=== PATIENT | male | born 1985 | race Caucasian/White ===

== ENCOUNTER 2017-02-12 18:33 | Inpatient (IN) | payer OTHER ==
[~2017-02-12] VITALS: Ht 182.9 cm; Wt 110.7 kg
--- NOTE | ~2017-02-12 | HP ---
Unit #: [id number] #: [id number] Patient: MARTHA PERDUE [id number] [place] [address] [id number] MR#: [id number] NAME: AMRTHA PERDUE. ROOM: P214 Age: 31 Sex: M Admission Date: 02/12/2017 : 1985 Attending Physician: Polo Montanez M.D. Admitting Physician: Polo Montanez M.D. Primary Care Physician: Aarti Alonso A.P.R.N. HISTORY AND PHYSICAL HISTORY OF PRESENT ILLNESS The patient is a 31-year-old male admitted to [address] [place] [address] on 02/12/2017 for polysubstance abuse and suicidal ideations. PAST MEDICAL HISTORY Polysubstance abuse. PAST SURGICAL HISTORY The patient denies. SOCIAL HISTORY He is unemployed. He lives with his mother. He smokes 1 pack of cigarettes daily and uses heroin everyday and has a history of polysubstance use. FAMILY MEDICAL HISTORY Noncontributory. ALLERGIES No known drug allergies. CURRENT MEDICATIONS The patient is not on any home medications. REVIEW OF SYSTEMS CONSTITUTIONAL: No fever or chills. HEENT: Denies any sore throat, ear pain or runny nose. CARDIOVASCULAR: Denies chest pain, irregular heart rhythm or palpitations. CHEST: Denies shortness of breath or cough. No hemoptysis. GASTROINTESTINAL: Denies nausea, vomiting, diarrhea or chronic constipation. ENDOCRINE: Denies history of increased thirst or urination. No recent significant weight loss or gain. GENITOURINARY: Denies dysuria, frequency, or hematuria. SKIN: Denies any rashes. HEMATOLOGIC: Denies history of increased bleeding or bruising. MUSCULOSKELETAL: Denies any hot, swollen joints. No generalized muscle pain. NEUROLOGIC: Denies problems with vision or speech. No frequent, severe headaches. No numbness, tingling or weakness in any extremities. Denies loss of bladder or bowel control. PHYSICAL EXAMINATION Unit #: [id number] #: [id number] Patient: MARTHA PERDUE GENERAL: He is awake, alert, and oriented in no acute distress. VITAL SIGNS: Temperature 97.8, heart rate 93, respirations 16, blood pressure 123/78. HEIGHT: 6 feet 0. WEIGHT: 244 pounds. SKIN: Warm and dry without rash or lesion. HEENT: Normocephalic. TMs not viewed. Oral and nasal passages clear. Conjunctivae clear. PERRLA. EOMs intact. NECK: Supple without lymphadenopathy or thyromegaly. HEART: Regular rate and rhythm without murmur. LUNGS: Clear. ABDOMEN: Soft, nontender. : Not done. EXTREMITIES: No evidence of cyanosis, clubbing or edema. Moves all without focal deficit. NEUROLOGICAL: Grossly within normal limits. Cranial Nerves: II: Visual blanton are intact. III, IV AND : Extraocular movements are intact. Pupils are equal, round and reactive to light. V: Facial sensation is grossly normal. VII: Facial movements and expression are normal. VIII: Auditory acuity grossly intact. IX, X: Uvula is midline. Phonation is normal. XI: Patient shrugs shoulders and turns head normally. XII: Tongue protrudes in the midline. Sensory and Motor Function: Sensory and motor sensation is grossly normal. Motor: moves all extremities well. IMPRESSION 1. Psychiatric admission. 2. Polysubstance abuse. RECOMMENDATIONS PSYCHIATRIC: Per psychiatrist. MEDICAL: No contraindication to participate in this facility activities. MEDICAL PROGNOSIS Good. MEDICAL CONDITION Stable. Dictated by... David Garber/donovan TD: 02/13/2017 16:19 JOB #: [id number] Unit #: [id number] #: [id number] Patient: MARTHA PERDUE Chante HISTORY AND PHYSICAL Page 1 of 1 X GER KOO APRN HISTORY AND PHYSICAL
--- NOTE | ~2017-02-12 | PA ---
Unit #: [id number] #: [id number] Patient: MARTHA PERDUE [id number] [facility] [address] [place] [address] [id number] MR#: [id number] NAME: MARTHA PERDUE. ROOM: P214 Age: 31 Sex: M Admission Date: 02/12/2017 : 1985 Date of Assessment: Attending Physician: Polo Montanez M.D. Admitting Physician: Polo Montanez M.D. Primary Care Physician: Aarti Alonso A.P.R.N. PSYCHIATRIC ASSESSMENT INFORMANTS Patient, reliable; OLOP, reliable. CHIEF COMPLAINT "I am at rock bottom." HISTORY OF PRESENT ILLNESS Martha Perdue is a 31-year-old man with a history of substance abuse and depression. He reports that he is increasingly hopeless and helpless, and cannot stop using drugs. He felt suicidal with a plan to overdose and could not contract for safety. He was admitted for stabilization. PAST PSYCHIATRIC HISTORY Last admission to this facility was in 08/2016. He has had previous stays for his condition as well. FAMILY PSYCHIATRIC HISTORY No reported family history of mental illness or substance abuse. SOCIAL HISTORY The patient denied a history of childhood abuse or neglect. He is a single heterosexual man, who is currently living with his family and is a high-school graduate, who is temporarily unemployed. PAST MEDICAL HISTORY No chronic medical problems. MEDICATIONS None currently. ALLERGIES No known medication allergies. SUBSTANCE ABUSE HISTORY The patient has been using heroin and benzodiazepines to excess. He also uses cannabis and cocaine on an erratic basis. MENTAL STATUS EXAMINATION Martha presented as a mildly disheveled man, who appeared his stated age. He was cooperative with the examination. His speech was spontaneous and easily understood. Musculoskeletal examination was calm. His mood was depressed with a congruent affect. He was alert, fully oriented. Memory and concentration were intact. Thought processes were logical with no Unit #: [id number] #: [id number] Patient: MARTHA PERDUE active psychosis. He reported suicidal ideation with a plan to overdose and could not contract for safety. Insight and judgment were intact. Fund of knowledge and abstraction were intact. ASSETS AND LIABILITIES The patient knows local resources and presents voluntarily for treatment. Liabilities include lack of current treatment plan and ongoing drug use. ADMITTING DIAGNOSES AXIS I: Major depression, F33.2. Opioid dependence with withdrawal, uncomplicated, F11.23. Benzodiazepine abuse. AXIS II: No diagnosis. AXIS III: Substance withdrawal. AXIS IV: AXIS V: PSYCHIATRIC PLAN The patient was admitted and placed on suicide precautions and the opioid detox protocol. We will add Zoloft 50 mg daily for depression, and use trazodone as needed for insomnia. We will monitor for response and make changes as clinically appropriate. He will enroll in dual diagnosis groups and activities. TREATMENT GOALS Resolution of SI, improvement in insight, improvement in coping skills, and establishment of sobriety. DISCHARGE PLANNING Follow up with chemical dependence programing of the patient's choice and with community mental health. ESTIMATED LENGTH OF STAY 5 days. Dictated by... Polo Montanez M.D. DAVIDE/jaimee TD: 02/14/2017 10:35 JOB #: [id number] PSYCHIATRIC ASSESSMENT Page 1 of 1 X Polo Montanez MD X PSYCHIATRIC ASSESSMENT
[2017-02-13 10:46] LABS: ALBUMIN SERUM 4.5 g/dL (3.5-5.0); BUN/CREATININE RATIO 17.14; CALCIUM SERUM 9.4 mg/dL (8.4-10.2); CREATININE SERUM 0.7 mg/dL (0.6-1.4); GLOM FILT RATE Estimated 125.8 mL/min (>60); POTASSIUM 4.2 mmol/L (3.5-5.1); PROTEIN TOTAL SERUM 7.7 g/dL (6.0-8.3)
[2017-02-13 11:55] LABS: AMPHETAMINE POS (NEG); BARBITURATES NEG (NEG); BENZODIAZEPINES NEG (NEG); COCAINE NEG (NEG); MARIJUANA NEG (NEG); OPIATES POS (NEG); TRICYCLIC ANTIDEPRESSANTS POS (NEG); U METHADONE NEG (NEG)
[2017-02-14 14:54] LABS: BASOPHIL% 0.3 % (0-2.5); EOSINOPHIL% 0.5 % (0.0-7.0); HEMATOCRIT 38.8 % (38.0-50.0); LYMPHOCYTE# 1.4 X10e3 (1.0-3.5); LYMPHOCYTE% 26.7 % (17.0-45.0); MEAN CELL VOLUME 81.8 FL (83-96); MEAN CORPUSCULAR HEMOGLOBIN 27.5 PG (28-34); MEAN CORPUSCULAR HGB CONC 33.6 g/dL (30-36); MEAN PLATELET VOLUME 9.5 FL (6.5-11.5); MONOCYTE# 0.4 X10e3 (0-1.0); MONOCYTE% 7.9 % (3.0-12.0); NEUTROPHIL# 3.3 X10e3 (1.5-7.1); NEUTROPHIL% 64.6 % (40-75); PLATELET COUNT 153 X10e3 (140-420); RED BLOOD COUNT 4.75 X10e (3.90-5.60); RED CELL DISTRIBUTION WIDTH 14.4 % (11.0-15.5); WHITE BLOOD COUNT 5.1 X10e3 (4.0-10.5)
[2017-02-14 15:06] LABS: DIFF IND NO
[2017-02-18 18:43] LABS: HA AB IGM (HEPPAN) Nonreactive (()); HB CORE AB IGM (HEPPAN) Nonreactive (Nonreactive); HB S AG (HEPPAN) Nonreactive (Nonreactive); HEP C AB (HEPPAN) Reactive (Nonreactive)
== END 2017-02-15 12:45 | DRG 881 ==
LOC: P2S 20:17
PROVIDERS: Psychiatry & Neurology Psychiatry
PROC: HZ2ZZZZ Detoxification Services for Substance Abuse Treatment (ICD-10-PCS; principal; 2017-02-12)
DX: F32.9 Major depressive disorder, single episode, unspecified (principal); F11.23 Opioid dependence with withdrawal; F19.10 Other psychoactive substance abuse, uncomplicated
CPT/HCPCS: 80053; 80074; 80307; 85025; 87522; 87806